=== PATIENT | female | born 1955 | race Caucasian/White ===

== ENCOUNTER 2016-04-30 16:59 | Emergency (ER) | payer OTHER ==
[~2016-04-30] VITALS: Ht 157.5 cm; Wt 91.6 kg
[~2016-04-30 16:59] MED LIST: ADVA500A INH; ALBU0.63 IN; BUME0.5T PO; CALC750C PO; CLOR1TAB21 PO; FIORTAB4 PO; ONDA1TAB16 PO; PREV30CA36 PO; SOMA350T PO; SYNT175T PO; ZAFI1TAB2 PO
[2016-04-30 17:18] VITALS: BP 179/103; PULSE 107; RESP 16; TEMP 98.5; O2SAT 95
[2016-04-30] MEDS ORDERED: METF500 PO (17:33)
[2016-04-30] MEDS ORDERED: ZETI10TA5 PO (17:33)
[2016-04-30] MEDS ORDERED: METO-309 PO (17:33)
[2016-04-30] MEDS ORDERED: FLUTI44I INH (17:33)
[2016-04-30] MEDS ORDERED: LEVO.2 PO (17:33)
[2016-04-30] MEDS ORDERED: ZAFI1TAB7 PO (17:33)
[2016-04-30] MEDS ORDERED: VENTAER INH (17:33)
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
[2016-04-30 18:47] VITALS: BP 200/107
[2016-04-30] MEDS ORDERED: DICL75TA PO (18:47)
[2016-04-30] MEDS ORDERED: ROBA750T PO (18:47)
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
== END 2016-04-30 18:56 | disposition home or self-care (01) ==
LOC: PHEFT 16:59
DX: S13.4XXA Sprain of ligaments of cervical spine, initial encounter (principal); V43.62XA Car passenger injured in collision with other type car in traffic accident, initial encounter; Y93.89 Activity, other specified; Y92.410 Unspecified street and highway as the place of occurrence of the external cause
CPT/HCPCS: 72125; 72128

== ENCOUNTER → 2016-05-14 | Outpatient (CLI) | payer OTHER ==
[~2016-05-14] MED LIST changes: -ADVA500A INH; -ALBU0.63 IN; -BUME0.5T PO; -CALC750C PO; -CLOR1TAB21 PO; +DICL75TA PO; -FIORTAB4 PO; +FLUTI44I INH; +LEVO.2 PO; +METF500 PO; +METO-309 PO; -ONDA1TAB16 PO; -PREV30CA36 PO; +ROBA750T PO; -SOMA350T PO; -SYNT175T PO; +VENTAER INH; -ZAFI1TAB2 PO; +ZAFI1TAB7 PO; +ZETI10TA5 PO
[2016-05-14 09:14] LABS: ALKALINE PHOSPHATASE 160 U/L (45-117); ALT (GPT) 35 U/L (10-53); ANION GAP 6 MEQ/L (5-15); AST (GOT) 12 U/L (15-37); BICARBONATE 29.2 MEQ/L (21.0-32.0); BLOOD UREA NITROGEN 17 MG/DL (7-18); CHLORIDE 103 MEQ/L (98-107); GLOMERULAR FILTRATION RATE 69 ML/MIN (>89); GLUCOSE,FASTING 130 MG/DL (74-99); HDL CHOLESTEROL 44.3 MG/DL (40.0-60.0); LDL CHOLESTEROL 114 MG/DL (0-99); MAGNESIUM 2.1 MG/DL (1.5-2.5); POTASSIUM 4.4 MEQ/L (3.5-5.1); SODIUM (NA) 138 MEQ/L (136-145); TOTAL BILIRUBIN ADULT 0.4 MG/DL (0.2-1.0)
== END ==
LOC: CLAB 08:19
PROVIDERS: ATTEND Family Medicine
DX: E03.9 Hypothyroidism, unspecified (principal); E11.9 Type 2 diabetes mellitus without complications; E78.4 Other hyperlipidemia; I10 Essential (primary) hypertension; J45.909 Unspecified asthma, uncomplicated; B35.1 Tinea unguium; J30.9 Allergic rhinitis, unspecified; M19.012 Primary osteoarthritis, left shoulder; M48.02 Spinal stenosis, cervical region; M66.211 Spontaneous rupture of extensor tendons, right shoulder; M75.02 Adhesive capsulitis of left shoulder; M75.112 Incomplete rotator cuff tear or rupture of left shoulder, not specified as traumatic
CPT/HCPCS: 36415; 80053; 80061; 82306; 83735; 83970; 84100; 84443

== ENCOUNTER → 2016-11-10 | Outpatient (CLI) | payer OTHER ==
[2016-11-10 09:44] LABS: AUTOMATED NEUTROPHIL # 3.3 TH/MM3 (1.8-7.7); BASOPHIL % 0.7 % (0.0-2.0); EOSINOPHIL # 0.1 TH/MM3 (0-0.4); EOSINOPHIL % 2.6 % (0.0-4.0); HEMATOCRIT 44.2 % (35.0-46.0); HEMO FLAGS DIFF FINAL; LYMPH % 30.1 % (9.0-44.0); LYMPHOCYTE # 1.7 TH/MM3 (1.0-4.8); MEAN CELL VOLUME 89.8 FL (80.0-100.0); MEAN CORPUSCULAR HGB CONC 34.5 % (32.0-36.0); MONO % 7.8 % (0.0-8.0); NEUT % 58.8 % (16.0-70.0); PLATELET COUNT 219 TH/MM3 (150-450); RED BLOOD COUNT 4.92 MIL/MM3 (4.00-5.30); RED CELL DISTRIBUTION WIDTH 12.8 % (11.6-17.2); WHITE BLOOD COUNT 5.5 TH/MM3 (4.0-11.0)
[2016-11-10 11:10] LABS: ANION GAP 9 MEQ/L (5-15); AST (GOT) 14 U/L (15-37); BICARBONATE 26.4 MEQ/L (21.0-32.0); BLOOD UREA NITROGEN 14 MG/DL (7-18); CHLORIDE 106 MEQ/L (98-107); GAMMA GT 55 U/L (5-55); GLOMERULAR FILTRATION RATE 67 ML/MIN (>89); POTASSIUM 4.3 MEQ/L (3.5-5.1); SODIUM (NA) 141 MEQ/L (136-145)
[2016-11-10 11:22] LABS: ALKALINE PHOSPHATASE 148 U/L (45-117); ALT (GPT) 34 U/L (10-53); GLUCOSE,FASTING 131 MG/DL (74-99); LDL CHOLESTEROL 114 MG/DL (0-99); THYROXINE (T4) 13.6 MCG/DL (4.8-13.9); TOTAL BILIRUBIN ADULT 0.3 MG/DL (0.2-1.0)
[2016-11-10 17:02] LABS: HEMOGLOBIN A1a 0.9 %; HEMOGLOBIN Ao 84.8 %; HEMOGLOBIN F 0.9 %; HEMOGLOBIN LA1C 2.1 %; HEMOGLOBIN P3 3.7 %
== END ==
LOC: CLAB 09:11
PROVIDERS: ATTEND Family Medicine
DX: E55.9 Vitamin D deficiency, unspecified (principal); E03.9 Hypothyroidism, unspecified; E78.5 Hyperlipidemia, unspecified; I10 Essential (primary) hypertension; E21.3 Hyperparathyroidism, unspecified; R94.5 Abnormal results of liver function studies; M19.019 Primary osteoarthritis, unspecified shoulder; R73.02 Impaired glucose tolerance (oral)
CPT/HCPCS: 36415; 80053; 80061; 82306; 82330; 82977; 83036; 83970; 84100; 84436; 84443; 84550; 85025

== ENCOUNTER → 2017-05-07 | Outpatient (CLI) | payer OTHER ==
[~2017-05-07] MED LIST changes: +EZET10 PO; -ZETI10TA5 PO
[2017-05-07 09:58] LABS: AUTOMATED NEUTROPHIL # 3.8 TH/MM3 (1.8-7.7); BASOPHIL % 0.5 % (0.0-2.0); EOSINOPHIL # 0.2 TH/MM3 (0-0.4); EOSINOPHIL % 3.7 % (0.0-4.0); HEMATOCRIT 42.7 % (35.0-46.0); HEMOGLOBIN 14.9 GM/DL (11.6-15.3); LYMPH % 25.9 % (9.0-44.0); LYMPHOCYTE # 1.6 TH/MM3 (1.0-4.8); MEAN CELL VOLUME 89.6 FL (80.0-100.0); MEAN CORPUSCULAR HEMOGLOBIN 31.3 PG (27.0-34.0); MEAN CORPUSCULAR HGB CONC 34.9 % (32.0-36.0); MEAN PLATELET VOLUME 7.2 FL (7.0-11.0); MONO % 8.1 % (0.0-8.0); MONOCYTE # 0.5 TH/MM3 (0-0.9); NEUT % 61.8 % (16.0-70.0); PLATELET COUNT 191 TH/MM3 (150-450); RED BLOOD COUNT 4.76 MIL/MM3 (4.00-5.30); RED CELL DISTRIBUTION WIDTH 12.7 % (11.6-17.2); WHITE BLOOD COUNT 6.1 TH/MM3 (4.0-11.0)
[2017-05-07 10:17] LABS: ALBUMIN 3.9 GM/DL (3.4-5.0); AST (GOT) 16 U/L (15-37); BICARBONATE 29.1 MEQ/L (21.0-32.0); BLOOD UREA NITROGEN 14 MG/DL (7-18); CALCIUM 8.6 MG/DL (8.5-10.1); CHLORIDE 104 MEQ/L (98-107); CREATININE 0.84 MG/DL (0.50-1.00); GAMMA GT 63 U/L (5-55); GLOMERULAR FILTRATION RATE 69 ML/MIN (>89); GLUCOSE,FASTING 150 MG/DL (74-99); SODIUM (NA) 139 MEQ/L (136-145)
[2017-05-07 10:18] LABS: ALT (GPT) 38 U/L (10-53); CHOLESTEROL 213 MG/DL (120-200); PHOSPHORUS 3.1 MG/DL (2.5-4.9)
[2017-05-07 10:26] LABS: ALKALINE PHOSPHATASE 132 U/L (45-117); CHOLESTEROL/ HDL RATIO 4.53 RATIO; LDL CHOLESTEROL 110 MG/DL (0-99); THYROXINE (T4) 14.2 MCG/DL (4.8-13.9); TOTAL BILIRUBIN ADULT 0.4 MG/DL (0.2-1.0); TRIGLYCERIDES 280 MG/DL (42-150)
[2017-05-07 10:58] LABS: HEMOGLOBIN A1C 6.4 % (4.3-6.0)
== END ==
LOC: CLAB 09:31
PROVIDERS: ATTEND Family Medicine
DX: R73.02 Impaired glucose tolerance (oral) (principal); I10 Essential (primary) hypertension; E55.9 Vitamin D deficiency, unspecified; E21.3 Hyperparathyroidism, unspecified; M19.019 Primary osteoarthritis, unspecified shoulder; E78.5 Hyperlipidemia, unspecified; E03.9 Hypothyroidism, unspecified; R94.5 Abnormal results of liver function studies
CPT/HCPCS: 36415; 80053; 80061; 82306; 82977; 83036; 83970; 84100; 84436; 84443; 84550; 85025